=== PATIENT | male | born 1970 | race Caucasian/White ===

== ENCOUNTER → 2021-11-27 12:47 | Outpatient (BNVA) | payer OTHER, SELFPAY | PROVIDERS: PCP Family Medicine; Visit Provider Psychiatry & Neurology Neurology | DX: H02.402 Unspecified ptosis of left eyelid (principal); M95.2 Other acquired deformity of head | CPT/HCPCS: 99202 ==

== ENCOUNTER 2021-12-17 10:31 | Outpatient (REF) | payer OTHER, SELFPAY ==
--- NOTE | ~2021-12-17 | MR_ITS ---
MRI OF THE BRAIN WITHOUT IV CONTRAST INDICATION: Ptosis of the left eyelid. COMPARISON: None available. TECHNIQUE: Multiplanar multisequence MR imaging of the brain was obtained without IV contrast. FINDINGS: There is no hydrocephalus, extra-axial surface collection, or herniation. Mild chronic microangiopathy. The major flow voids at the skull base are preserved. There is no acute infarct on diffusion-weighted imaging. There is no intracranial hemorrhage on the gradient recalled echo acquisition. The midline structures are normal. The cerebellar tonsils are normally positioned. The cerebellum and brainstem are normal. The craniocervical junction is normal. Osseous marrow signal intensity is homogenous. The visualized soft tissues are unremarkable. Congenital C2-C3 fusion. Retention cysts within the maxillary sinuses bilaterally and mild mucosal thickening within the ethmoid air cells and frontal sinuses bilaterally. Mastoid air cells are clear. MR/MR head/brain wo con IMPRESSION: - No acute intracranial findings. - Mild chronic microangiopathy. - Retention cysts within the left greater the right maxillary sinus.
== END 2021-12-17 10:32 | disposition home or self-care (01) ==
LOC: HO.MRI 10:31
PROVIDERS: Visit Provider Psychiatry & Neurology Neurology
DX: Q67.0 Congenital facial asymmetry (principal); H02.402 Unspecified ptosis of left eyelid
CPT/HCPCS: 70551